=== PATIENT | female | born 2005 | race Caucasian/White ===

== ENCOUNTER 2024-01-25 11:11 | Emergency (ER) | payer MEDICAID ==
[~2024-01-25] VITALS: Ht 157.5 cm; Wt 72.6 kg
[2024-01-25 11:18] VITALS: O2SAT 100
[2024-01-25] MEDS ORDERED: IBUP-2030 MT (13:14)
[2024-01-25] MEDS: IBUPROFEN 800MG TABLET PO ONE (13:26)
[2024-01-25 13:28] VITALS: BP 116/55; PULSE 80; RESP 18; TEMP 98.7
== END 2024-01-25 13:31 | disposition home or self-care (01) ==
LOC: ER 13:10
DX: M25.511 Pain in right shoulder (principal); V49.9XXA Car occupant (driver) (passenger) injured in unspecified traffic accident, initial encounter; Y93.89 Activity, other specified; Y92.89 Other specified places as the place of occurrence of the external cause; Y99.8 Other external cause status
CPT/HCPCS: 73030; 81025; 99283